=== PATIENT | male | born 1965 | race Caucasian/White ===

== ENCOUNTER 2016-06-19 14:55 | Outpatient (CLI) ==
[2016-01-29 20:51] VITALS: BMI 31.8
[2016-06-19 16:52] LABS: BASOPHILS # (AUTO) 0.2 K/uL (0-0.2); EOSINOPHILS # (AUTO) 0.5 K/ul (0.0-0.7); EOSINOPHILS % (AUTO) 3.1 % (0.0-7.0); HEMATOCRIT 54.6 % (42.0-52.0); HEMOGLOBIN 18.1 g/dl (14.0-18.0); IMMATURE GRANULOCYTE % (AUTO) 0.3 % (0.0-5.0); LYMPHOCYTES # (AUTO) 3.8 K/uL (0.60-3.4); MEAN CORPUSCULAR HEMOGLOBIN 27.3 pg (27.0-31.0); MEAN CORPUSCULAR HGB CONC 33.2 (31.8-35.4); MEAN CORPUSCULAR VOLUME 82.5 fl (80.0-94.0); MONOCYTES # (AUTO) 0.9 K/uL (0.4-2.0); MONOCYTES % (AUTO) 6.1 (0-10); NEUTROPHILS # (AUTO) 9.7 K/ul (2.0-6.9); NEUTROPHILS % (AUTO) 64.5; PLATELET COUNT 382 10^3/uL (140-440); RED BLOOD COUNT 6.62 10^6/ul (4.70-6.10); WHITE BLOOD COUNT 15.07 K/ul (4.2-10.2)
[2016-06-19 17:14] LABS: ALBUMIN 4.1 g/dL (3.4-5.0); ALBUMIN/GLOBULIN RATIO 0.93; ANION GAP 14.2; BILIRUBIN,TOTAL 0.42 mg/dL (0.00-1.20); CHOL/HDL RATIO 5.8 (4.5-6.4); POTASSIUM 4.2 mmol/L (3.5-5.1); TOTAL PROTEIN 8.5 g/dL (6.4-8.2)
== END 2016-06-19 14:56 | disposition home or self-care (01) ==
LOC: LAB 14:55
PROVIDERS: ATTEND General Practice
DX: E78.5 Hyperlipidemia, unspecified (principal); I25.10 Atherosclerotic heart disease of native coronary artery without angina pectoris; Z72.0 Tobacco use; Z79.899 Other long term (current) drug therapy
CPT/HCPCS: 36415; 80053; 80061; 85025

== ENCOUNTER 2016-07-03 08:02 | Outpatient (CLI) ==
[2016-01-29 20:51] VITALS: BMI 31.8
== END 2016-07-03 08:03 | disposition home or self-care (01) ==
LOC: LAB 08:02
PROVIDERS: ATTEND General Practice
DX: Z51.81 Encounter for therapeutic drug level monitoring (principal)
CPT/HCPCS: 36415; 80178

== ENCOUNTER 2016-07-31 16:17 | Outpatient (CLI) ==
[2016-01-29 20:51] VITALS: BMI 31.8
[2016-07-31 17:17] LABS: BASOPHILS # (AUTO) 0.1 K/uL (0-0.2); BASOPHILS % (AUTO) 0.8 % (0.0-3.0); EOSINOPHILS # (AUTO) 0.4 K/ul (0.0-0.7); EOSINOPHILS % (AUTO) 3.2 % (0.0-7.0); HEMATOCRIT 44.8 % (42.0-52.0); IMMATURE GRANULOCYTE % (AUTO) 0.4 % (0.0-5.0); LYMPHOCYTES % (AUTO) 22.4 (10.0-50.0); MEAN CORPUSCULAR HEMOGLOBIN 27.8 pg (27.0-31.0); MEAN CORPUSCULAR HGB CONC 33.5 (31.8-35.4); MONOCYTES # (AUTO) 0.7 K/uL (0.4-2.0); MONOCYTES % (AUTO) 5.5 (0-10); NEUTROPHILS % (AUTO) 67.7; PLATELET COUNT 324 10^3/uL (140-440); WHITE BLOOD COUNT 13.33 K/ul (4.2-10.2)
[2016-07-31 17:21] LABS: BILIRUBIN,URINE Negative (NEGATIVE); KETONES,URINE Negative (NEGATIVE); LEUKOCYTE ESTERASE ,URINE Negative (NEGATIVE); NITRITE,URINE Negative (NEGATIVE); PH,URINE 6.5 (5-9); PROTEIN,URINE Negative (NEGATIVE); URINE, BLOOD Trace-intact (NEGATIVE)
[2016-07-31 17:22] LABS: ADD URINE MICROSCOPIC YES
[2016-07-31 17:37] LABS: ALBUMIN 3.7 g/dL (3.4-5.0); ANION GAP 13.6; BILIRUBIN,TOTAL 0.3 mg/dL (0.00-1.20); BUN/CREATININE RATIO 12.5; CALCIUM 9.3 mg/dL (8.2-10.2); CREATININE 0.96 mg/dL (0.60-1.10); POTASSIUM 3.6 mmol/L (3.5-5.1); TOTAL PROTEIN 7.4 g/dL (6.4-8.2)
== END 2016-07-31 16:18 | disposition home or self-care (01) ==
LOC: LAB 16:17
PROVIDERS: ATTEND General Practice
DX: T88.7XXA Unspecified adverse effect of drug or medicament, initial encounter (principal); R35.1 Nocturia; E78.5 Hyperlipidemia, unspecified; Z79.899 Other long term (current) drug therapy
CPT/HCPCS: 36415; 80053; 81001; 83036; 85025

== ENCOUNTER 2017-05-02 16:09 | Outpatient (CLI) | payer OTHER ==
[2016-01-29 20:51] VITALS: BMI 31.8
[2017-05-02 16:20] LABS: BASOPHILS # (AUTO) 0.2 K/uL (0-0.2); EOSINOPHILS # (AUTO) 0.6 K/ul (0.0-0.7); EOSINOPHILS % (AUTO) 3.4 % (0.0-7.0); HEMATOCRIT 50.2 % (42.0-52.0); HEMOGLOBIN 17.3 g/dl (14.0-18.0); IMMATURE GRANULOCYTE % (AUTO) 0.4 % (0.0-5.0); LYMPHOCYTES % (AUTO) 21.5 (10.0-50.0); MEAN CORPUSCULAR HEMOGLOBIN 28.8 pg (27.0-31.0); MEAN CORPUSCULAR HGB CONC 34.5 (31.8-35.4); MEAN CORPUSCULAR VOLUME 83.5 fl (80.0-94.0); MONOCYTES # (AUTO) 1.4 K/uL (0.4-2.0); MONOCYTES % (AUTO) 7.7 (0-10); NEUTROPHILS # (AUTO) 12.2 K/ul (2.0-6.9); PLATELET COUNT 362 10^3/uL (140-440); RED BLOOD COUNT 6.01 10^6/ul (4.70-6.10); WHITE BLOOD COUNT 18.46 K/ul (4.2-10.2)
[2017-05-02 16:22] LABS: BILIRUBIN,URINE Negative (NEGATIVE); KETONES,URINE Trace (NEGATIVE); LEUKOCYTE ESTERASE ,URINE Negative (NEGATIVE); NITRITE,URINE Negative (NEGATIVE); PH,URINE 5.5 (5-9); PROTEIN,URINE Trace (NEGATIVE); URINE, BLOOD Negative (NEGATIVE)
[2017-05-02 16:23] LABS: ADD URINE MICROSCOPIC YES
[2017-05-02 16:38] LABS: ALBUMIN 3.9 g/dL (3.4-5.0); ALBUMIN/GLOBULIN RATIO 0.83; ANION GAP 16.1; BILIRUBIN,TOTAL 0.35 mg/dL (0.00-1.20); BUN/CREATININE RATIO 12.5; CALCIUM 10.4 mg/dL (8.2-10.2); CHOL/HDL RATIO 6.6 (4.5-6.4); CREATININE 1.04 mg/dL (0.60-1.10); POTASSIUM 4.1 mmol/L (3.5-5.1); TOTAL PROTEIN 8.6 g/dL (6.4-8.2)
[2017-05-02 16:40] LABS: BACTERIA,URINE TRACE (NOT PRESENT)
== END 2017-05-02 16:10 | disposition home or self-care (01) ==
LOC: LAB 16:09
PROVIDERS: ATTEND General Practice
DX: E78.5 Hyperlipidemia, unspecified (principal); Z79.899 Other long term (current) drug therapy
CPT/HCPCS: 36415; 80053; 80061; 81001; 85025

== ENCOUNTER 2017-10-22 08:44 | Outpatient (CLI) ==
[2016-01-29 20:51] VITALS: BMI 31.8
== END 2017-10-22 08:45 | disposition home or self-care (01) ==
LOC: LAB 08:44
PROVIDERS: ATTEND General Practice
DX: I25.10 Atherosclerotic heart disease of native coronary artery without angina pectoris (principal); E55.9 Vitamin D deficiency, unspecified; E78.5 Hyperlipidemia, unspecified; I21.3 ST elevation (STEMI) myocardial infarction of unspecified site; R73.03 Prediabetes; F31.32 Bipolar disorder, current episode depressed, moderate
CPT/HCPCS: 36415; 80053; 80061; 81001; 82306; 85025

== ENCOUNTER 2017-10-31 14:28 | Outpatient (CLI) | payer OTHER ==
[2016-01-29 20:51] VITALS: BMI 31.8
--- NOTE | 2017-10-31 15:18 | DI ---
EXAM: Two views of the chest. History: Chest pain. Comparison: Chest radiograph 01/29/2013 Findings: Heart size is normal. No focal consolidation. No appreciable pleural fluid and no pneumot horax. Calcified granulomas again seen within the thorax. No acute osseous abnormalities. Impression: No acute cardiopulmonary process. No change compared to the prior study
== END 2017-10-31 14:29 | disposition home or self-care (01) ==
LOC: RAD 14:28
PROVIDERS: ATTEND General Practice
DX: R06.89 Other abnormalities of breathing (principal)

== ENCOUNTER 2018-09-09 15:58 | Outpatient (CLI) ==
[2016-01-29 20:51] VITALS: BMI 31.8
== END 2018-09-09 15:59 | disposition home or self-care (01) ==
LOC: RHC-LAB 15:58
PROVIDERS: ATTEND General Practice
DX: E78.5 Hyperlipidemia, unspecified (principal); R73.03 Prediabetes; F31.32 Bipolar disorder, current episode depressed, moderate; F32.9 Major depressive disorder, single episode, unspecified; Z79.899 Other long term (current) drug therapy
CPT/HCPCS: 36415; 80053; 80061; 81001; 85025